=== PATIENT | female | born 1950 | race Two or more races ===

== ENCOUNTER 2025-01-21 20:00 | Inpatient (IN) | payer OTHER ==
[~2025-01-21] VITALS: Ht 149.9 cm; Wt 40.8 kg
[2025-01-21] MEDS ORDERED: ZESTRIL2.5 MG PO (20:06)
[2025-01-21] MEDS ORDERED: SIMVASTATIN5 MG PO (20:06)
[2025-01-21] MEDS ORDERED: FAMOTIDINE/PF 20 MG in 0.9 % SODIUM CHLORIDE 8 ML IV PUSH STA (20:25)
[2025-01-21] MEDS ORDERED: KETOROLAC TROMETHAMINE 30 MG VIAL ONE (20:27)
[2025-01-21] MEDS ORDERED: FAMOTIDINE/PF 20 MG/2 ML VIAL ONE (20:27)
[2025-01-21] MEDS ORDERED: KETOROLAC TROMETHAMINE 30 MG VIAL IV ONE (20:30)
[2025-01-21] MEDS ORDERED: 0.9 % SODIUM CHLORIDE 1,000 ML IV SCH (20:30)
[2025-01-21] MEDS ORDERED: BARIUM SULFATE 450 ML ORAL.SUSP PO ONE (20:31)
[2025-01-21 21:00] LABS: BASO % 0.2 % (0.1-1.2); EOS # 0.04 (0.04-0.54); EOS % 0.2 % (0.7-7.0); HEMOGLOBIN 11.7 g/dL (11.2-15.7); LYMPH # 1.09 (1.18-3.74); LYMPH % 6.2 % (19.3-53.1); MEAN CORPUSCULAR HEMOGLOBIN 29.1 pg (25.6-32.2); MONO # 1.48 (0.24-0.82); MONO % 8.4 % (4.7-12.5); NEUT # 14.99 (1.56-6.13); NEUT % 84.5 % (34.0-71.1); PLATELET COUNT 253 K/uL (163-369); RED BLOOD COUNT 4.02 M/uL (3.93-5.22); RED CELL DISTRIBUTION WIDTH 14.4 % (11.6-14.4)
[2025-01-21 21:20] LABS: BILIRUBIN TOTAL 0.78 mg/dL (0.3-1.2); CALCIUM 8.3 mg/dL (8.5-10.1); CREATININE SERUM 0.8 mg/dL (0.55-1.02); GFR 69.92; GLOBULINA 4.6 G/DL (2.4-3.5); POTASSIUM 4.62 mEq/L (3.5-5.1); TOTAL PROTEIN 7.6 gm/dL (6.4-8.2)
[2025-01-21] MEDS ORDERED: MORPHINE SULFATE 4 MG/ML CARTRIDGE IV PRN (23:45)
[2025-01-22] MEDS ORDERED: PIPERACILLIN/TAZOBACTAM SODIUM 3.375 GM in 0.9 % SODIUM CHLORIDE 100 ML IV SCH
[2025-01-22] MEDS ORDERED: PIPERACILLIN/TAZOBACTAM SODIUM 3.375 GM VIAL IV ONE (01:06)
[2025-01-22] MEDS ORDERED: ONDANSETRON HCL 2 MG/ML VIAL ONE (01:57)
[2025-01-22] MEDS ORDERED: RINGERS SOLUTION,LACTATED 1,000 ML IV STA (05:49)
[2025-01-22] MEDS ORDERED: CIPROFLOXACIN IN 5 % DEXTROSE 400 MG/200 ML PIGGYBAG IV ONE (05:50)
[2025-01-22] MEDS ORDERED: METRONIDAZOLE/SODIUM CHLORIDE 500 MG/100 ML PIGGYBACK IV STA (05:50)
[2025-01-22] MEDS ORDERED: MORPHINE SULFATE 4 MG/ML VIAL IV STA (05:50)
[2025-01-22] MEDS ORDERED: CIPROFLOXACIN IN 5 % DEXTROSE 400 MG/200 ML PIGGYBAG IV STA (05:50)
[2025-01-22] MEDS ORDERED: METRONIDAZOLE/SODIUM CHLORIDE 500 MG/100 ML PIGGYBACK IV ONE (05:51)
[2025-01-22] MEDS ORDERED: ZOCOR20 MG PO (08:17)
[2025-01-22] MEDS ORDERED: FOSAMAX70 MG PO (08:18)
[2025-01-22] MEDS ORDERED: XANAX2 MG PO (08:19)
[2025-01-22] MEDS ORDERED: DEXTROSE 5 % AND 0.9 % NACL 1,000 ML IV SCH (08:45)
[2025-01-22] MEDS ORDERED: PIPERACILLIN/TAZOBACTAM SODIUM 4.5 GM in 0.9 % SODIUM CHLORIDE 100 ML IV SCH (08:48)
[2025-01-22] MEDS ORDERED: ENALAPRILAT DIHYDRATE 1.25 MG/ML VIAL IV SCH (08:48)
[2025-01-22] MEDS ORDERED: HYOSCYAMINE SULFATE 0.125 MG TAB.SUBL SL PRN (09:00)
[2025-01-22] MEDS ORDERED: PANTOPRAZOLE SODIUM 40 MG/VIAL VIAL IV PUSH SCH (09:00)
[2025-01-22] MEDS ORDERED: ACETAMINOPHEN 500 MG GEL..CAP PO PRN (09:00)
[2025-01-22 19:38] VITALS: BP 144/96; O2SAT 96
[2025-01-22] MEDS ORDERED: LORazepam 2 MG/ML VIAL IM SCH (21:00)
[2025-01-22 21:47] LABS: FERRITIN 421.3 NG/ML (8-252)
[2025-01-22 22:48] VITALS: BP 141/76
[2025-01-23 01:41] VITALS: BP 125/78; O2SAT 99
[2025-01-23 01:45] VITALS: BP 129/86
[2025-01-23 05:29] VITALS: BP 111/80
[2025-01-23 08:16] LABS: INR 1.03; PROTHROMBIN TIME 11.2 SECONDS (9.0-11.5)
[2025-01-23 08:28] LABS: CALCIUM 7.5 mg/dL (8.5-10.1); CHOL HDL RATIO 2.2 (0-5.0); CREATININE SERUM 0.61 mg/dL (0.55-1.02); GFR 95.61; PHOSPHOROUS 2.2 mg/dL (2.5-4.9); POTASSIUM 3.57 mEq/L (3.5-5.1); T4 FREE 1.41 NG/ML (0.76-1.46); TSH 1.32 uIU/mL (0.358-3.74)
[2025-01-23 08:30] LABS: C-REACTIVE PROTEIN 12.7 MG/DL (0.00-0.29)
[2025-01-23] MEDS ORDERED: ZOLEDRONIC ACID 4MG/5ML VIAL IV ONE (08:45)
[2025-01-23 08:46] LABS: BASO % 0.3 % (0.1-1.2); EOS % 3.3 % (0.7-7.0); HEMATOCRIT 29.4 % (34.1-44.9); HEMOGLOBIN 9.7 g/dL (11.2-15.7); LYMPH % 12.2 % (19.3-53.1); MEAN CORPUSCULAR HEMOGLOBIN 28.7 pg (25.6-32.2); MONO # 0.83 (0.24-0.82); MONO % 9.2 % (4.7-12.5); NEUT # 6.74 (1.56-6.13); NEUT % 74.7 % (34.0-71.1); PLATELET COUNT 261 K/uL (163-369); RED BLOOD COUNT 3.38 M/uL (3.93-5.22); RED CELL DISTRIBUTION WIDTH 14.4 % (11.6-14.4)
[2025-01-23] MEDS ORDERED: CALCITONIN,SALMON,SYNTHETIC 400 UNIT/2ML VIAL SUBCUTANEO STA (08:48)
[2025-01-23] MEDS ORDERED: HYDROCORTISONE SODIUM SUCC/PF 100 MG VIAL IV SCH (09:00)
[2025-01-23] MEDS ORDERED: FUROsemide 20 MG/2 ML VIAL IV SCH (09:00)
[2025-01-23 09:03] VITALS: BP 135/80
[2025-01-23 11:10] LABS: PROCALCITONIN 0.081 ng/ml (0.020-0.080)
[2025-01-23 12:03] LABS: FOLIC ACID 17.71 ng/ml (4.78-20)
[2025-01-23 16:14] LABS: ALBUMIN 2.9 gm/dL (3.4-5.0); CALCIUM 7.9 mg/dL (8.5-10.1)
[2025-01-23 16:24] LABS: PHOSPHOROUS 1.6 mg/dL (2.5-4.9)
[2025-01-23 17:00] VITALS: BP 145/83; O2SAT 96
[2025-01-24 01:51] VITALS: BP 136/81; O2SAT 97
[2025-01-24 05:53] VITALS: BP 127/85
[2025-01-24 08:16] LABS: CALCIUM 7.5 mg/dL (8.5-10.1); CREATININE SERUM 0.54 mg/dL (0.55-1.02); GFR 110.06; MAGNESIUM 1.9 mg/dL (1.8-2.4); PHOSPHOROUS 2.2 mg/dL (2.5-4.9)
[2025-01-24 09:02] LABS: POTASSIUM 2.91 mEq/L (3.5-5.1)
[2025-01-24 09:11] VITALS: BP 143/85; O2SAT 98
[2025-01-24] MEDS ORDERED: ENALAPRILAT DIHYDRATE 1.25 MG/ML VIAL IV SCH (12:00)
[2025-01-24 14:00] LABS: CALCIUM 7.8 mg/dL (8.5-10.1); CHOL HDL RATIO 2.4 (0-5.0); CREATININE SERUM 0.57 mg/dL (0.55-1.02); GFR 103.4
[2025-01-24 14:08] LABS: POTASSIUM 2.81 mEq/L (3.5-5.1)
[2025-01-24 16:52] VITALS: BP 134/82; O2SAT 97
[2025-01-24] MEDS ORDERED: AA 4.25%/CALCIUM/LYTES/DEX 10% 1,000 ML CENTRAL SCH (17:00)
[2025-01-24] MEDS ORDERED: PIPERACILLIN/TAZOBACTAM SODIUM 4.5 GM VIAL IV ONE (23:46)
[2025-01-25 00:56] VITALS: BP 127/78
[2025-01-25 01:19] LABS: PH,URINE 6.5 (5.0-8.0); URINE APPEARANCE Clear; URINE BILIRRUBIN Negative (NEGATIVE); URINE BLOOD Moderate; URINE COLOR Yellow; URINE GLUCOSE Negative (NEGATIVE); URINE LEUKOCYTE Negative; URINE NITRATE Negative; URINE PROTEIN Negative (NEGATIVE); URINE UROBILINOGEN 0.2 E.U./dl
[2025-01-25 01:20] LABS: URINE BACTERIA 14.6 uL (0.0-1933); URINE EPITHELIAL CELLS 6.6 uL (0.0-38.8); URINE RBC 45.2 uL (0.0-20.8); URINE WBC 8.8 uL (0.0-23.2)
[2025-01-25 01:50] LABS: URINE CAST 0.14 uL (0.0-1.40); URINE KETONE 40 (NEGATIVE)
[2025-01-25] MEDS ORDERED: POTASSIUM PHOS,M-BASIC-D-BASIC 18 MM in 0.9 % SODIUM CHLORIDE 250 ML IV ONE (08:00)
[2025-01-25] MEDS ORDERED: MAGNESIUM SULFATE IN WATER 50 ML IV ONE (08:00)
[2025-01-25 09:15] VITALS: BP 121/79; O2SAT 97
[2025-01-25 10:49] LABS: BASO % 0.2 % (0.1-1.2); EOS # 0.18 (0.04-0.54); EOS % 1.8 % (0.7-7.0); HEMATOCRIT 34.2 % (34.1-44.9); HEMOGLOBIN 11.5 g/dL (11.2-15.7); LYMPH # 1.93 (1.18-3.74); LYMPH % 19.1 % (19.3-53.1); MEAN CORPUSCULAR HEMOGLOBIN 29.3 pg (25.6-32.2); MONO # 1.06 (0.24-0.82); MONO % 10.5 % (4.7-12.5); NEUT # 6.84 (1.56-6.13); NEUT % 67.8 % (34.0-71.1); PLATELET COUNT 340 K/uL (163-369); RED BLOOD COUNT 3.92 M/uL (3.93-5.22); RED CELL DISTRIBUTION WIDTH 13.9 % (11.6-14.4)
[2025-01-25 11:45] LABS: CALCIUM 8.5 mg/dL (8.5-10.1); CREATININE SERUM 0.54 mg/dL (0.55-1.02); GFR 110.06; MAGNESIUM 1.7 mg/dL (1.8-2.4); PHOSPHOROUS 2.3 mg/dL (2.5-4.9)
[2025-01-25 11:57] LABS: POTASSIUM 2.86 mEq/L (3.5-5.1)
[2025-01-25] MEDS ORDERED: POTASSIUM CHLORIDE IN WATER 40 MEQ/100 ML PIGGYBAG IV SCH (13:00)
[2025-01-25 18:26] VITALS: BP 139/74; O2SAT 98
[2025-01-26 02:02] VITALS: BP 128/90; O2SAT 95
[2025-01-26 07:28] LABS: CALCIUM 8.6 mg/dL (8.5-10.1); CREATININE SERUM 0.53 mg/dL (0.55-1.02); GFR 112.46; POTASSIUM 4.02 mEq/L (3.5-5.1)
[2025-01-26 08:56] VITALS: BP 116/70; O2SAT 95
[2025-01-26 17:51] VITALS: BP 134/87; O2SAT 98
[2025-01-27 02:11] VITALS: BP 136/85; O2SAT 98
[2025-01-27 07:47] VITALS: BP 126/68; O2SAT 98
[2025-01-27 13:08] LABS: CALCIUM IONIZED 4.8 mg/dL (4.5-5.6)
[2025-01-27 16:38] VITALS: BP 157/98; O2SAT 100
[2025-01-27] MEDS ORDERED: FAT EMULSIONS 250 ML IV SCH (21:00)
[2025-01-28 02:22] VITALS: BP 118/73; O2SAT 95
[2025-01-28 08:35] VITALS: BP 124/85; O2SAT 91
[2025-01-28 17:58] VITALS: BP 145/85; O2SAT 97
[2025-01-29 02:09] VITALS: BP 124/80; O2SAT 95
[2025-01-29 09:45] VITALS: BP 145/93; O2SAT 100
[2025-01-29 17:45] VITALS: BP 131/80
[2025-01-30 01:59] VITALS: BP 160/86; O2SAT 96
[2025-01-30 08:36] LABS: BASO % 0.9 % (0.1-1.2); EOS # 0.51 (0.04-0.54); EOS % 8.7 % (0.7-7.0); HEMATOCRIT 29.8 % (34.1-44.9); HEMOGLOBIN 9.8 g/dL (11.2-15.7); LYMPH # 1.02 (1.18-3.74); LYMPH % 17.4 % (19.3-53.1); MEAN CORPUSCULAR HEMOGLOBIN 28.3 pg (25.6-32.2); MONO # 0.72 (0.24-0.82); NEUT # 3.52 (1.56-6.13); NEUT % 60.2 % (34.0-71.1); PLATELET COUNT 380 K/uL (163-369); RED BLOOD COUNT 3.46 M/uL (3.93-5.22)
[2025-01-30 08:37] LABS: MONO % 12.3 % (4.7-12.5)
[2025-01-30 09:03] LABS: ALBUMIN 2.8 gm/dL (3.4-5.0); CALCIUM 8.8 mg/dL (8.5-10.1); CREATININE SERUM 0.46 mg/dL (0.55-1.02); GFR 132.43; PHOSPHOROUS 3.3 mg/dL (2.5-4.9); POTASSIUM 3.4 mEq/L (3.5-5.1)
[2025-01-30 09:26] VITALS: BP 132/83; O2SAT 96
[2025-01-30 18:32] VITALS: BP 136/78
[2025-01-30] MEDS ORDERED: LORazepam 2 MG/ML VIAL ONE (19:32)
[2025-01-30] MEDS ORDERED: LORazepam 2 MG/ML VIAL IV SCH (21:00)
[2025-01-31 01:22] VITALS: BP 105/75; O2SAT 94
[2025-01-31 06:44] LABS: BASO % 0.8 % (0.1-1.2); EOS # 0.54 (0.04-0.54); EOS % 7.4 % (0.7-7.0); HEMATOCRIT 31.3 % (34.1-44.9); HEMOGLOBIN 10.4 g/dL (11.2-15.7); LYMPH # 1.28 (1.18-3.74); LYMPH % 17.5 % (19.3-53.1); MEAN CORPUSCULAR HEMOGLOBIN 28.9 pg (25.6-32.2); MONO # 0.75 (0.24-0.82); MONO % 10.3 % (4.7-12.5); NEUT # 4.62 (1.56-6.13); NEUT % 63.3 % (34.0-71.1); PLATELET COUNT 415 K/uL (163-369); RED CELL DISTRIBUTION WIDTH 14.1 % (11.6-14.4)
[2025-01-31 07:14] LABS: PARTIAL THROMBOPLASTIN TIME 24.8 SECONDS (22.0-34.0); PROTHROMBIN TIME 10.9 SECONDS (9.0-11.5)
[2025-01-31 07:38] LABS: ALBUMIN 3.2 gm/dL (3.4-5.0); ALKALINE PHOSPHATASE 66 U/L (50-136); ALT/SGPT 15 U/L (12-78); ANION GAP 12 (10.0-20.0); AST/SGOT 15 U/L (15-37); BILIRUBIN TOTAL 0.16 mg/dL (0.3-1.2); BILIRUBIN,CONJUGATED < 0.10 mg/dL (0.0-0.2); BILIRUBIN,UNCONJUGATED 0.06 mg/dL (0.0-0.6); BLOOD UREA NITROGEN 15 mg/dL (7-18); BUN CREA RATIO 29 (7.0-25.0); CALCIUM 9.4 mg/dL (8.5-10.1); CARBON DIOXIDE 32 mEq/L (21-32); CHLORIDE 102 mmol/L (98-107); CHOL HDL RATIO 3.5 (0-5.0); CHOLESTEROL 144 mg/dL (0-200); CREATININE SERUM 0.52 mg/dL (0.55-1.02); GFR 114.96; GLOBULINA 3.7 G/DL (2.4-3.5); GLUCOSE FASTING 103 mg/dL (65-100); HDL 41 mg/dl (40-60); LDL 66 mg/dl (0-130); OSMOLALITY SERUM 284 MOSM/KG (275-295); POTASSIUM 3.78 mEq/L (3.5-5.1); SODIUM 142 mmol/L (136-145); TOTAL IRON BINDING CAPACITY 253 ug/dl (250-450); TOTAL PROTEIN 6.9 gm/dL (6.4-8.2); TRIGLYCERIDES 185 mg/dL (0-150); VLDL 37 (0-39)
[2025-01-31 08:44] LABS: UREA CLEARANCE 14.3 ML/MIN
[2025-01-31 09:24] VITALS: BP 132/94; O2SAT 99
[2025-01-31] MEDS ORDERED: PIPERACILLIN/TAZOBACTAM SODIUM 3.375 GM VIAL IV SCH (12:00)
[2025-01-31] MEDS ORDERED: PIPERACILLIN/TAZOBACTAM SODIUM 4.5 GM in 0.9 % SODIUM CHLORIDE 100 ML IV SCH (12:00)
[2025-02-01 01:17] VITALS: BP 131/74
[2025-02-01 07:00] VITALS: BP 106/72; O2SAT 95
[2025-02-01 16:17] VITALS: BP 120/84; O2SAT 96
[2025-02-02 01:59] VITALS: BP 96/56; O2SAT 96
[2025-02-02 09:01] VITALS: BP 145/86; O2SAT 97
[2025-02-02 18:01] VITALS: BP 123/80
[2025-02-03 02:36] VITALS: BP 105/68; O2SAT 97
[2025-02-03 09:18] VITALS: BP 135/81; O2SAT 99
== END 2025-02-03 14:09 | disposition home or self-care (01) | DRG 392 ==
LOC: ER 20:00 → MEDJ 01-22 09:07 → MEDI 01-31 15:24
PROVIDERS: General Practice; Internal Medicine; ADMIT Internal Medicine; ATTEND Internal Medicine
PROC: BW21ZZZ Computerized Tomography (CT Scan) of Abdomen and Pelvis (ICD-10-PCS; principal; 2025-01-21)
PROC: BU46ZZZ Ultrasonography of Uterus (ICD-10-PCS; 2025-01-23)
PROC: 02HV33Z Insertion of Infusion Device into Superior Vena Cava, Percutaneous Approach (ICD-10-PCS; 2025-01-23)
PROC: BW21YZZ Computerized Tomography (CT Scan) of Abdomen and Pelvis using Other Contrast (ICD-10-PCS; 2025-01-27)
PROC: BW21YZZ Computerized Tomography (CT Scan) of Abdomen and Pelvis using Other Contrast (ICD-10-PCS; 2025-02-02)
DX: K57.32 Diverticulitis of large intestine without perforation or abscess without bleeding (principal); K52.9 Noninfective gastroenteritis and colitis, unspecified; E86.0 Dehydration; I10 Essential (primary) hypertension; E78.5 Hyperlipidemia, unspecified; E87.6 Hypokalemia; F32.9 Major depressive disorder, single episode, unspecified